=== PATIENT | female | born 1975 | race Caucasian/White ===

== ENCOUNTER 2018-11-28 06:46 | Day surgery (SDC) | payer OTHER ==
[2018-11-27 15:36] VITALS: BMI 30.6
[2018-11-28 07:27] LABS: BHCG - Serum Negative (NEGATIVE); Pregs Control Background? CLEAR/WHITE (CLR/WHITE); Pregs Control Bar Appear? YES (CONTROL BAR)
[2018-11-28] MEDS ORDERED: FLU VACC QS2019-20(6MOS UP)/PF 60 MCG/0.5 ML SYRINGE IM ONE (09:00)
--- NOTE | 2018-11-28 09:39 | RAD ---
LUMBAR PUNCTURE WITH FLUOROSCOPIC GUIDANCE: HISTORY: Multiple sclerosis. COMPARISON: None. EXPOSURE: 0.6 minutes, 93.9 mcg/m2. FINDINGS: Successful lumbar puncture. A total of 10 cc of clear CSF was collected. No immediate or postprocedur e complications. TECHNIQUE: Consent was obtained to perform lumbar puncture with fluoroscopic guidance. The L3-L4 level was deeme d appropriate. Skin was prepped and draped in sterile fashion. 1% lidocaine, buffered with sodium bicarbonate was used for local anesthesia. Under fluoroscopic guidance, a 22-gauge spinal needle was advanced into the CSF space. Inner stylet was removed. Prompt flow of clear CSF into the hub of the needle. Via a short tubing catheter, a total of 10 cc of clear CSF was collected. Patient tolerated t he procedure well. No immediate or postprocedural complications. IMPRESSION: Successful lumbar puncture. Transcribed Date/Time: 11/28/2018 9:50 AM
--- NOTE | 2018-11-28 09:48 | RAD ---
COMPLETE SPINE MYELOGRAM: HISTORY: Pain. Weakness. EXPOSURE: 0.3 minutes, 403.4 mcg/m2. FINDINGS: [employer] radiographs: 3 views of the cervical spine, 2 views of the thoracic spine, and 2 views lumbar s pine demonstrate preservation of vertebral body height. No fractures or malalignment. No significant loss of disc space height. Successful myelogram. A total of 9 cc of Isovue-M 300 contrast was administered intrathecally. Patien t tolerated the procedure well. No immediate or postprocedure complications. TECHNIQUE: Consent was obtained to perform a complete myelogram. Lumbar puncture was performed. Refer to separat e lumbar puncture report for further detail. After removing the needle, patient was placed in Trendelenburg position and the contrast flowed freely from the lumbar to thoracic spine. There are no immediate or postprocedure complications. IMPRESSION: Successful complete spinal myelogram. Transcribed Date/Time: 11/28/2018 9:54 AM
--- NOTE | 2018-11-28 10:27 | CT ---
Exam: Post myelogram cervical spine CT HISTORY:Pain. Radiculopathy. COMPARISON: None Colon Cervical spine CT is performed in the axial length. Three-dimensional reformatted images are submitte d FINDINGS: Straightening of normal cervical lordosis may be due to patient position. No craniocervical dissociat ion. Appropriate alignment of the lateral masses of C1 and C2. Intact odontoid process. Cervical spine vertebral body height is maintained. No fracture Visualized soft tissue neck structures are unremarkable. Upper mediastinum and lung apices are also u nremarkable. C2-C3: Broad-based disc bulge nearly effaces the ventral subarachnoid space. Mild central canal steno sis. Bilaterally, neural foramina are patent C3-C4: Broad-based disc bulge with a slight central disc protrusion/left paracentral osteophyte compl ex minimally effaces the subarachnoid space. There is minimal contact deformity the cervical or. Mild central canal stenosis. Right neural foramen is patent. Minimal left neural foraminal narrowing due to uncovertebral hypertrophy C4-C5:Broad-based disc bulge abuts the thecal sac. There is contact upon and deformity of the cervica l cord. Mild central canal stenosis. Bilaterally, neural foramina are patent. C5-C6: Mild/moderate loss of disc space height. Broad-based disc osteophyte complex results in mild t o moderate central canal stenosis. There is deformity the ventral cord. Mild bilateral neural foraminal narrowing due to uncovertebral hypertrophy. C6-C7:No significant central canal stenosis or significant neural foraminal narrowing C7-T1: No significant central canal stenosis or significant neural foraminal narrowing. IMPRESSION: 1.Degenerative changes of the cervical spine as detailed above.
--- NOTE | 2018-11-28 10:53 | CT ---
POSTMYELOGRAM THORACIC SPINE CT: HISTORY: Bilateral leg weakness. Thoracic spine pain. COMPARISON: None. FINDINGS: Visualized mediastinum demonstrates a slightly heterogeneous thyroid gland. The mediastinal mass, lym phadenopathy or hematoma. Heart size is within normal limits. No significant pericardial fluid. Visualized aorta has a normal caliber. No periaortic fat stranding. Trachea and central bronchi are patent. Lungs are clear of any masses or consolidation. Dependent atelectatic changes. Pleural space: No pleural effusion. Pneumothorax: None. Thoracic spine vertebral body height is maintained. No fracture. There are 12 thoracic-type vertebrae . T1-T2: No significant central canal stenosis. T2-T3: There is a central disc protrusion which deforms the thoracic cord. Mild to moderate central c anal stenosis. T3-T4: There is a central disc protrusion that deforms the thoracic cord. Mild to moderate central ca nal stenosis. T4-T5: Central disc protrusion deforms the thoracic cord. Mild central canal stenosis. T5-T6: There is a central/right paracentral protrusion that deforms the right paracentral cord. Mild central canal stenosis. T6-T7 central disc protrusion that deforms the thecal sac. No significant mass effect upon the cord. Mild central canal stenosis. T7-T8, T8-T9, T9-T10, T10-T11 and T11-T12 do not demonstrate any significant central canal stenosis. Conus medullaris terminates at the superior aspect of L1. IMPRESSION: Degenerative changes in the upper thoracic spine. There is mild to moderate central canal stenosis wi th deformity the thoracic cord. Transcribed Date/Time: 11/28/2018 10:58 AM
--- NOTE | 2018-11-28 11:20 | CT ---
Exam: Postmyelogram lumbar spine CT HISTORY: Bilateral lower extremity weakness. COMPARISON: None FINDINGS: 5 lumbar type vertebra. Lumbar spine vertebral body height is maintained. No fracture. No spondylolis thesis. No spondylolysis. No retroperitoneal or paraspinal mass, lymphadenopathy or hematoma. Visualized solid organs are unrem arkable Visualized alimentary canal is unremarkable Incompletely evaluated hypodensity in the right kidney. Visualized sacral ala are preserved. Conus medullaris terminates at the upper aspect of L1. T12-L1: No significant central canal stenosis or significant neural foraminal narrowing L1-L2: No significant central canal stenosis or significant neural foraminal narrowing L2-L3: No significant central canal stenosis or significant neural foraminal narrowing. Minimal ligam ent flavum thickening is noted. L3-L4: Minimal left paracentral disc protrusion. No significant central canal stenosis. Mild ligament flavum thickening is noted. Bilaterally, neural foramina are patent L4-L5: Broad-based disc bulge minimally abuts the ventral thecal sac. No significant posterior disc a bnormality. No significant central canal stenosis. Mild bilateral foraminal narrowing predominantly due to disc material. L5-S1: Mild loss of disc space height. Broad-based disc bulge, without significant central canal sten osis. Mild bilateral foraminal narrowing, due to disc material. IMPRESSION: 1. No significant central canal stenosis or significant neural foraminal narrowing. 2. Incompletely evaluated hypodensity in the right in the pelvis. Pelvic ultrasound can be performed in a nonemergent basis. CODE T
[2018-12-01 15:10] LABS: CSF IgG Index 0.5 (0.0-0.7); CSF IgG Synthesis Rate -3.9 mg/day (-9.9 TO +3.3); IgG/Alb CSF 0.13 (0.00-0.25)
== END 2018-11-28 10:40 | disposition home or self-care (01) ==
LOC: RAD 06:46
PROVIDERS: ATTEND Neurological Surgery
PROC: B00B1ZZ Plain Radiography of Spinal Cord using Low Osmolar Contrast (ICD-10-PCS; principal; 2018-11-28)
PROC: B01B1ZZ Fluoroscopy of Spinal Cord using Low Osmolar Contrast (ICD-10-PCS; principal; 2018-11-28)
PROC: 009U3ZZ Drainage of Spinal Canal, Percutaneous Approach (ICD-10-PCS; principal; 2018-11-28)
DX: M54.12 Radiculopathy, cervical region (principal); M48.02 Spinal stenosis, cervical region; M48.04 Spinal stenosis, thoracic region; G89.29 Other chronic pain; R51 Headache; F41.9 Anxiety disorder, unspecified; F32.9 Major depressive disorder, single episode, unspecified; K21.9 Gastro-esophageal reflux disease without esophagitis; M19.90 Unspecified osteoarthritis, unspecified site; Z79.899 Other long term (current) drug therapy; Z88.2 Allergy status to sulfonamides
CPT/HCPCS: 36415; 62270; 62305; 72126; 72129; 72132; 82040; 82042; 82784; 83916; 84703

== ENCOUNTER 2018-11-29 11:50 | Outpatient (CLI) | payer OTHER ==
--- NOTE | 2018-11-29 14:08 | MRI ---
Exam: Brain MRI without contrast HISTORY: Chronic non intractable headache. COMPARISON: None FINDINGS: Calvarial marrow signal intensity: T1 marrow signal hypointensity. Gradient echo sequence: No hemorrhage Brain parenchyma: No mass, mass effect or midline shift. Brain volume, age-appropriate. Note is made of a partially empty sella. Cortical oseguera-white matter differentiation: Preserved Restricted diffusion: Central arterial flow voids are maintained. Absent restricted diffusion White matter signal intensities:No significant T2 or FLAIR white matter hyperintensities. Sinuses: Adequate aeration of the paranasal sinuses and mastoid air cells. IMPRESSION: 1. Unremarkable noncontrast brain 2. T1 marrow signal hypointensity, nonspecific. Correlate for anemia or marrow
== END 2018-11-29 11:51 | disposition home or self-care (01) ==
LOC: BICMRI 11:50
PROVIDERS: ATTEND Neurological Surgery
DX: R51 Headache (principal); M62.81 Muscle weakness (generalized); R20.0 Anesthesia of skin; R29.898 Other symptoms and signs involving the musculoskeletal system
CPT/HCPCS: 70551

== ENCOUNTER 2018-11-29 13:57 | Emergency (ER) | payer OTHER ==
[2018-11-29 15:05] LABS: #Basophils 0.1 thou/uL (0.0-0.2); #Eosinphils 0.2 thou/uL (0.0-0.7); #Lymphocytes 1.2 thou/uL (1.20-3.40); #Monocytes 0.7 thou/uL (0.11-0.59); #Neutrophils 10.6 thou/uL (1.40-6.50); %Basophils 0.4 % (0.0-1.0); %Eosinophils 1.6 % (0.0-10.0); %Lymphocytes 9.6 % (21.0-51.0); %Monocytes 5.3 % (0.0-10.0); Hemoglobin 13.8 g/dL (12.0-16.0); Mean Corpuscular HGB CONC 33.5 g/dL (32.0-36.0); Mean Corpuscular Hemoglobin 29.8 pg (27.0-31.0); Mean Corpuscular Volume 88.8 fL (78.0-98.0); Mean Platelet Volume 7.9 fL (7.4-10.4); Platelet Count 251 thou/uL (130-400); RBC Distribution Width 11.2 % (11.5-14.5); Red Blood Cell (RBC) Count 4.65 mill/uL (4.20-5.40); White Blood Cell (WBC) Count 12.8 thou/uL (4.8-10.8)
[2018-11-29 15:09] LABS: BHCG - Serum Negative (NEGATIVE); Pregs Control Background? CLEAR/WHITE (CLR/WHITE); Pregs Control Bar Appear? YES (CONTROL BAR)
[2018-11-29] MEDS ORDERED: Promethazine HCl 25 MG/ML VIAL ONE (15:23)
[2018-11-29 15:26] LABS: ALT (SGPT) 24 U/L (8-55); AST (SGOT) 15 U/L (5-34); Albumin 4.1 g/dL (3.5-5.0); Alkaline Phosphatase 56 U/L (40-110); Anion Gap 11 mmol/L (10-20); BUN (Urea Nitrogen) 7 mg/dL (7.0-18.7); Bilirubin, Total 0.6 mg/dL (0.2-1.2); Calc. Creatinine Clearance 0 mL/min (70-130); Calcium 9.3 mg/dL (7.8-10.44); Carbon Dioxide 23 mmol/L (22-29); Chloride 105 mmol/L (98-107); Estimated GFR-MDRD 85; Globulin 3.1 g/dL (2.4-3.5); Glucose 103 mg/dL (70-105); Potassium 3.8 mmol/L (3.5-5.1); Protein, Total 7.2 g/dL (6.0-8.3); Sodium 135 mmol/L (136-145)
== END 2018-11-29 17:32 | disposition home or self-care (01) ==
LOC: ERS 13:57
DX: R42 Dizziness and giddiness (principal); F43.10 Post-traumatic stress disorder, unspecified; F32.9 Major depressive disorder, single episode, unspecified
CPT/HCPCS: 36415; 80053; 84703; 85025; 93005; 96365; 96366; J2550